=== PATIENT | female | born 1985 | race Caucasian/White ===

== ENCOUNTER 2017-04-01 11:43 | Outpatient (CLI) | payer MEDICAID ==
[~2017-04-01] VITALS: Ht 152.4 cm; Wt 91.8 kg
[2017-04-01 12:12] VITALS: Ht 152.4 cm; Wt 91.8 kg
[2017-04-01] MEDS ORDERED: PRENAT PO (12:12)
[2017-04-01 12:13] VITALS: BP 117/68; PULSE 75; RESP 18
--- NOTE | 2017-04-01 13:24 | RADRPT ---
PROCEDURE: OB ultrasound for biophysical profile CLINICAL INDICATION: Biophysical profile. . TECHNIQUE: Multiple sonographic images of the pelvis were obtained. Transabdominal views are obta ined. COMPARISON: 03/17/2017 FINDINGS: Single intrauterine gestation. Presentation: Breech Placenta: Fundal - posterior No evidence of placental abruption. No evidence of placenta previa. breathing movement = 2/2 tone = 2/2 motion = 2/2 ALEXIS = 2/2 ALEXIS = 13.1 cm heart rate: 152 beats per minute IMPRESSION: Single intrauterine gestation. Biophysical profile 05/19 Breech presentation RPTAT: AADD .Sushil Figueredo MD, MD Date Time Electronically viewed and signed by .Sushil Figueredo MD, on 04/01/2017 13:23 .B/
--- NOTE | 2017-04-01 13:57 | TRIAGE ---
OB Triage Datetime Report Generated by CPN: 04/01/2017 13:57 Datetime: 04/01/2017 12:52 Stage of : OB Triage Labor Evaluation Frequency: NONE Monitor Mode: External Resting Tone Jacinto: Relaxed Heart Rate FHR Baseline Rate: 145 Monitor Mode: External US Variability: Moderate 6-25 bpm Accelerations: 15X15 Decelerations: None Pain Assessment Pain Scale: 0 Pain Goal: 3 Vaginal Exam Membrane Status: Intact Vaginal Bleeding: None Datetime: 04/01/2017 12:10 Assessment Type: Triage Maternal Assessment Level of Consciousness: Fully Conscious DTR's/Clonus: DTRs 2+; No Clonus Headache: Denies Blurred Vision: No Respiratory Effort: Unlabored; Regular Rhythm; Equal Expansion Breath Sounds, Left: Clear and Equal Breath Sounds, Right: Clear and Equal Nausea/Vomiting: Denies RUQ Epigastric Pain: Denies Lower Extremities Edema: Bilateral Lower Extremities Degree: 1+ Upper Extremities Edema: None Degree: None Facial Edema: None Fall Risk Assessment History of Falling: (0) No Secondary Diagnosis: (0) No Ambulatory Aid: (0) Bedrest/Nurse Assist IV Therapy: (0) No Gait: (0) Normal/Bedrest/Immobile Mental Status: (0) Oriented to Own Ability Fall Score: 0 Fall Risk Score Definition: No Risk: No action required Datetime: 04/01/2017 12:05 Monitor Mode: External Monitor Mode: External US Datetime: 04/01/2017 11:49 Time of Arrival: 04/01/2017 11:35 EGA: 38.5 Arrived By: Ambulatory Chief Complaint: PT SENT FROM CLINIC WITH ORDERS FOR POSITION Movement: Present Contractions: Denies/Absent Rupture of Membranes: Denies Vaginal Bleeding: None Vaginal Discharge: Denies Recent Sexual Intercouse: Denies Abdominal Trauma: Not Applicable Patient Complaints: None Time Provider Notified: 04/01/2017 11:35 Provider Notified: ALANIS Initial Plan: U/S FOR POSITION
--- NOTE | 2017-04-01 18:01 | PN ---
Triage Information Date/Time April 01, 2017 Weeks of Gestation 38 weeks and 5 days : 3 Para: 1 Diabetes: none Hypertention: none Additional information 31-year-old with IUP at 38 weeks and 5 days with care with Dr. shah roby was sent to triage for ultrasound for taking position. Patient denies any uterine contraction, decreased movement vaginal bleeding or any other complaint. JESSENIA: April 10, 2017. Next NST: Category 1 BPP: 8/ ALEXIS: 13.1 Ultrasound done: Presentation breech Per Dr. shah roby needs to be scheduled for section at 39 weeks. Patient has been scheduled. Objective Vital Signs Date Time Temp Pulse Resp B/P Pulse Ox O2 Delivery O2 Flow Rate FiO2 04/01/17 12:13 98.8 75 18 117/68 Room Air Heart Rate: 130's Contractions: None Results/Medications Imaging Results PROCEDURE: OB ultrasound for biophysical profile CLINICAL INDICATION: Biophysical profile. . TECHNIQUE: Multiple sonographic images of the pelvis were obtained. Transabdominal views are obtained. COMPARISON: 03/17/2017 FINDINGS: Single intrauterine gestation. Presentation: Breech Placenta: Fundal - posterior No evidence of placental abruption. No evidence of placenta previa. breathing movement = 2/2 tone = 2/2 motion = 2/2 ALEXIS = 2/2 ALEXIS = 13.1 cm heart rate: 152 beats per minute IMPRESSION: Single intrauterine gestation. Biophysical profile 05/19 Breech presentation RPTAT: AADD Assessment/Plan IUP at 38 weeks and 5 days Breech presentation Scheduled for a section at [address] Fuentes Strict labor precautions and kick count discussed with the patient Patient to return to clinic in 2 days for a scheduled SAMI KRAMER MD Apr 01, 2017 18:01
== END 2017-04-01 14:15 | disposition home or self-care (01) ==
LOC: OBT 11:43 → L-D 11:45 → OBT 14:15
PROVIDERS: ATTEND Obstetrics & Gynecology
DX: O32.1XX0 Maternal care for breech presentation, not applicable or unspecified (principal); Z3A.38 38 weeks gestation of pregnancy
CPT/HCPCS: 76818; Z7500; G0463

== ENCOUNTER 2017-04-03 15:02 | Inpatient (IN) | payer MEDICAID ==
[~2017-04-03] VITALS: Ht 152.4 cm; Wt 91.8 kg
[~2017-04-03 15:02] MED LIST: OXYTOCIN 30 UNITS/LR 500 ML BAG IV ONE; PRENAT PO
[2017-04-03] MEDS ORDERED: LACTATED RINGER'S 1,000 ML IV SCH (15:13)
[2017-04-03] MEDS ORDERED: OXYTOCIN 30 UNITS/LR 500 ML IV SCH (15:30)
[2017-04-03] MEDS ORDERED: OXYTOCIN 30 UNITS/LR 500 ML IV PRN ×2 (15:30→21:30)
[2017-04-03] MEDS ORDERED: METHYLERGONOVINE 0.2 MG INJ IM PRN ×2 (15:30→21:30)
[2017-04-03] MEDS ORDERED: CARBOPROST 250 MCG INJ IM PRN ×2 (15:30→21:30)
[2017-04-03] MEDS ORDERED: MISOPROSTOL 200 MCG TAB PR PRN ×2 (15:30→21:30)
[2017-04-03] MEDS ORDERED: AMPICILLIN 2 GM/NS (PMX) 100 ML IV SCH (15:30)
[2017-04-03 15:35] LABS: ADD SCAN DIFF NO
[2017-04-03 15:37] LABS: BASOPHILS % 0.2 % (0.0-2.0); EOSINOPHILS # 0.1 10^3/ul (0.0-0.5); EOSINOPHILS % 0.8 % (0.0-7.0); HEMOGLOBIN 13.3 g/dl (12.0-16.0); LYMPHOCYTES # 2.7 10^3/ul (0.8-2.9); LYMPHOCYTES % 21.3 % (15.0-51.0); MEAN CORPUSCULAR HEMOGLOBIN 30.1 pg (29.0-33.0); MEAN CORPUSCULAR HGB CONC 34.1 g/dl (32.0-37.0); MEAN CORPUSCULAR VOLUME 88.2 fl (82.0-101.0); MONOCYTE # 0.7 10^3/ul (0.3-0.9); MONOCYTES % 5.1 % (0.0-11.0); NEUTROPHIL # 9.1 10^3/ul (1.6-7.5); PLATELET COUNT 213 10^3/UL (140-415); RED BLOOD COUNT 4.42 10^6/ul (4.20-5.40); RED CELL DISTRIBUTION WIDTH 13.1 % (11.5-14.5); WHITE BLOOD COUNT 12.6 10^3/ul (4.8-10.8)
[2017-04-03 15:40] VITALS: Ht 152.4 cm; Wt 91.8 kg
[2017-04-03 15:50] LABS: INR 0.89; PT RATIO 0.9
[2017-04-03 15:51] LABS: PARTIAL THROMBOPLASTIN TIME 25.3 Sec (25.0-35.0)
--- NOTE | 2017-04-03 16:07 | RADRPT ---
PROCEDURE: Obstetrical ultrasound greater than 14 weeks CLINICAL INDICATION: Confirm breech position. Active labor TECHNIQUE: Real time sonographic imaging of the gravid uterus is performed transabdominally and mu ltiple static woodruff scale and Doppler images are submitted for review as are measurements. The image s are reviewed on the PACS. COMPARISON: 04/01/2017 FINDINGS: There is a single living intrauterine gestation in breech presentation. The heart beat is est imated at 159 bpm. Placenta is right lateral and grade2. There is no evidence of placenta previa or abruption. RPTAT:HJJR IMPRESSION: 1. Single viable intrauterine gestation confirmed to be in breech position unchanged of 04/01/2017. 2. Right lateral grade 2 placenta without evidence of abruption. Physician Kalia Date Time Electronically viewed and signed by Physician Kalia on 04/03/2017 16:06 /
[2017-04-03] MEDS ORDERED: PHENYLephrine (100 MCG/ML) 5ML SYG ONE (18:07)
[2017-04-03] MEDS ORDERED: morphine SULFATE/PF (10 MG/10 ML) INJ ONE (18:07)
[2017-04-03] MEDS ORDERED: OXYTOCIN 10 UNIT INJ ONE (18:07)
[2017-04-03] MEDS ORDERED: ONDANSETRON 4 MG INJ ONE (18:07)
[2017-04-03] MEDS: CEFAZOLIN 2 GM/50 ML (PMX) 50 ML IV SCH ×2 (18:15→18:32)
--- NOTE | 2017-04-03 18:24 | PREOPHP ---
DATE OF ADMISSION: 04/03/2017 HISTORY OF PRESENT ILLNESS: A 31-year-old female 3, para 1-0-1-1, estimated date of deliver y 04/10/2017, is admitted at 39 weeks for primary section due to breech presentation. PAST MEDICAL HISTORY: Unremarkable. PAST SURGICAL HISTORY: Dilation and curettage. ALLERGIES: NO KNOWN ALLERGIES. FAMILY HISTORY: Noncontributory. PHYSICAL EXAMINATION: VITAL SIGNS: The patient is afebrile. Vital signs stable. HEAD, NECK AND CHEST: Within normal limits. ABDOMEN: Soft, nontender and gravid. EXTREMITIES: Within normal limits. NEUROLOGIC: Within normal limits. IMPRESSION: at 39 weeks with breech presentation. PLAN: Delivery by primary section. Risks, benefits and alternatives of the procedure were explained to the patient. The patient said she understood and gave informed consent for the proced ure. Dictated By: MARIBEL LOPEZ/KEATON Conf#: [id number] DID#: [id number]
[2017-04-03] MEDS ORDERED: morphine 2 MG INJ IV PRN (19:30)
[2017-04-03] MEDS ORDERED: NALOXONE (0.4 MG/ML) INJ IV PRN (19:30)
[2017-04-03] MEDS ORDERED: DIPHENHYDRAMINE 50 MG INJ IV PRN (19:30)
[2017-04-03] MEDS ORDERED: ONDANSETRON 4 MG INJ IV PRN (19:30)
[2017-04-03] MEDS: KETOROLAC 30 MG INJ IV PRN (21:20)
[2017-04-03] MEDS ORDERED: LANOLIN 7 GM TUBE TOP PRN (21:30)
[2017-04-03 22:30] VITALS: BP 127/71; RESP 19
[2017-04-04] MEDS: OXYTOCIN 30 UNITS/LR 500 ML IV SCH ×2 (00:32→04:34)
[2017-04-04 03:51] VITALS: BP 112/66; PULSE 89; RESP 18
[2017-04-04 07:30] VITALS: BP 114/73; PULSE 85; RESP 16
[2017-04-04 08:22] LABS: ADD SCAN DIFF NO
[2017-04-04 08:26] LABS: BASOPHILS % 0.2 % (0.0-2.0); EOSINOPHILS % 0.3 % (0.0-7.0); HEMATOCRIT 34.1 % (37.0-47.0); HEMOGLOBIN 11.7 g/dl (12.0-16.0); LYMPHOCYTES # 1.5 10^3/ul (0.8-2.9); LYMPHOCYTES % 12.6 % (15.0-51.0); MEAN CORPUSCULAR HEMOGLOBIN 30.5 pg (29.0-33.0); MEAN CORPUSCULAR HGB CONC 34.3 g/dl (32.0-37.0); MEAN PLATELET VOLUME 12.6 fl (7.4-10.4); MONOCYTE # 0.7 10^3/ul (0.3-0.9); MONOCYTES % 6.2 % (0.0-11.0); NEUTROPHIL # 9.5 10^3/ul (1.6-7.5); NEUTROPHILS % 80.3 % (39.0-77.0); PLATELET COUNT 188 10^3/UL (140-415); RED BLOOD COUNT 3.83 10^6/ul (4.20-5.40); RED CELL DISTRIBUTION WIDTH 13.2 % (11.5-14.5); WHITE BLOOD COUNT 11.9 10^3/ul (4.8-10.8)
[2017-04-04] MEDS: SENNA/DOCUSATE NA (8.6MG/50MG) TAB PO SCH ×2 (08:41→21:36)
[2017-04-04] MEDS: LACTATED RINGER'S 1,000 ML IV SCH ×4 (08:41→22:29)
[2017-04-04 12:00] VITALS: BP 117/68; PULSE 78; RESP 17
--- NOTE | 2017-04-04 15:16 | QN ---
Documentation Comment No complaint Afebrile VSS Abdomen soft ND POD #1 Stable Ambulate Advance diet. MARIBEL THAPA MD Apr 04, 2017 15:16
[2017-04-04 16:00] VITALS: BP 109/66; PULSE 79
[2017-04-04] MEDS: KETOROLAC 30 MG INJ IV PRN (18:11)
[2017-04-04] MEDS ORDERED: OXYCODONE/ACETAMINOPHEN (5/325) TAB PO PRN ×2 (18:15)
[2017-04-04 20:10] VITALS: BP 107/54; PULSE 82; RESP 18
[2017-04-04] MEDS: IBUPROFEN 800 MG TAB PO SCH (21:36)
[2017-04-05 03:47] VITALS: BP 113/80; PULSE 85; RESP 17
[2017-04-05] MEDS: IBUPROFEN 800 MG TAB PO SCH ×3 (06:00→22:01)
[2017-04-05 08:25] VITALS: BP 115/73; PULSE 85; RESP 19
[2017-04-05] MEDS: SENNA/DOCUSATE NA (8.6MG/50MG) TAB PO SCH ×2 (09:21→20:57)
[2017-04-05] MEDS: LACTATED RINGER'S 1,000 ML IV SCH ×2 (13:29→21:29)
--- NOTE | 2017-04-05 14:11 | OPR ---
DATE OF OPERATION: 04/03/2017 PREOPERATIVE DIAGNOSES: at 39 weeks with breech presentation. POSTOPERATIVE DIAGNOSES: at 39 weeks with breech presentation. OPERATION PERFORMED: Primary low-transverse section. SURGEON: Maribel Fuentes MD PLATEN PRESS FEEDER: Nicho Alarcon MD, ANESTHESIA: Spinal. ANESTHESIOLOGIST: Juan Cash MD PROCEDURE: The patient was taken to the operating room and placed on the operating table. After successful spinal anesthesia was given, the patient was placed in supine position. The area was prepared and draped in the usual sterile fashion. Spinal anesthesia was tested and was satisfactory. Using a scalpel, Pfannenstiel incision was made about 2 fingerbreadths above the symphysis pubis. The incision was carried to the fascia. The fascia was incised and extended bilaterally with Boyle scissors. Two Kochers were used to separate the fascia from the muscle. Muscle was dissected down. Using a scalpel, a small transverse incision was closed the uterus. Upon entering the uterine cavity, bandage scissors were inserted to extend the incision bilaterally, curved up. The baby was delivered from [place] breech presentation. After suctioning clear of amniotic fluid, the baby was handed off to the team in attendance. Apgars were 8 and 9. The placenta was delivered without difficulty. The uterus was closed with #1 Monocryl continuous. The peritoneal cavity was irrigated with warm saline. The peritoneum was closed with 2-0 Vicryl continuous. The fascia was closed with # 1 Vicryl, The subcutaneous tissue was reapproximated with 2-0 plain, skin was closed with italo. ESTIMATED BLOOD LOSS: 600 ml. COMPLICATIONS: None. COUNTS: All counts were correct. Dictated By: MARIBEL LOPEZ/NTS Conf#: [id number] DID#: [id number] LATASHA
--- NOTE | 2017-04-05 16:05 | QN ---
Documentation Comment No complaint Afebrile VSS Abdomen soft POD #2 Stable Continue present care. MARIBEL THAPA MD Apr 05, 2017 16:05
[2017-04-05 16:10] VITALS: BP 119/73; PULSE 71; RESP 19
[2017-04-05 20:00] VITALS: BP 128/69; PULSE 77; RESP 18
[2017-04-06 04:00] VITALS: BP 123/74; PULSE 74; RESP 17
[2017-04-06] MEDS: LACTATED RINGER'S 1,000 ML IV SCH ×2 (05:29→13:29)
[2017-04-06] MEDS: IBUPROFEN 800 MG TAB PO SCH ×2 (05:51→14:18)
[2017-04-06 08:00] VITALS: BP 133/73; PULSE 73; RESP 18
[2017-04-06] MEDS ORDERED: DIPHTH/TET/ACEL PERTUSS (ADULT) 0.5 ML VIAL IM* ONE (09:00)
[2017-04-06] MEDS: SENNA/DOCUSATE NA (8.6MG/50MG) TAB PO SCH (10:28)
[2017-04-06 15:57] VITALS: BP 140/70; PULSE 84; RESP 20
== END 2017-04-06 21:00 | disposition home or self-care (01) | DRG 766 ==
LOC: L-D 15:02 → PP1 22:16
PROVIDERS: ADMIT Obstetrics & Gynecology; ATTEND Obstetrics & Gynecology
PROC: 10D00Z1 Extraction of Products of Conception, Low, Open Approach (ICD-10-PCS; principal; 2017-04-03 17:00)
DX: O32.8XX0 Maternal care for other malpresentation of fetus, not applicable or unspecified (principal); O99.214 Obesity complicating childbirth; E66.01 Morbid (severe) obesity due to excess calories; Z3A.39 39 weeks gestation of pregnancy; Z37.0 Single live birth; Z68.39 Body mass index [BMI] 39.0-39.9, adult
CPT/HCPCS: 76815; 85025; 85610; 85730; 86592; 86850; 86900; 86901; 90715; 94760; 99464; J0290; J0690; J1885; J2274; J2370; J2405; J2590; J7120